=== PATIENT | male | born 1965 | race Caucasian/White ===

== ENCOUNTER → 2016-12-02 | Outpatient (CLI) | payer MEDICARE ==
--- NOTE | ~2016-12-02 | CST ---
Cardiac Perfusion Imaging Demographics Patient Name DRE Toledo JR Gender Male Patient Number [id number] Race Visit Number [id number] Ethnicity [employer] ID Room Number Accession Number [id number] Height Date of 1965 Weight Age 50 year(s) BSA Referring Physician Tono Overton MD BMI [facility] Date of study 12/02/2016 Physician Radiology Jonathan Robles M.D. Supervising MD/MLP Tono Overton MD [facility] Technologist Deangelo Valenzuela, [facility] Ordering Physician Tono Overton MD Stress Priyanka Sanchez injection mold technician Stress ECG Reading Tono Overton MD Nurse Kei Johnsony Physician Danny Bullock The procedure was explained in detail to the patient. Risks, complications and alternative treatments were reviewed. Written consent was obtained. Medications Reviewed with Patient prior to Procedure. Procedure Procedure Type: Nuclear Stress Test:Pharmacological, Lexiscan, Cardiac Study SF Procedure Start time: 12/02/2016 07:15 Indications: Chest pain, Tobacco use-prior, Hypertension and Family history of coronary artery disease. Appropriate Use Criteria: 8 Risk Factors The patient risk factors include:former tobacco use, treated hypertension and family history of premature CAD. Conclusions Summary Perfusion Images: The overall quality of the study is good. Left ventricular cavity is noted to be normal on the stress and rest studies. There is no evidence of abnormal lung activity. The right ventricle is not visualized and cannot be assessed. Stress SPECT images demonstrate homogenous tracer distribution throughout the myocardium. Rest SPECT images demonstrate homogenous tracer distribution throughout the myocardium. Gated SPECT imaging reveals normal myocardial thickening and wall motion. The left ventricular ejection fraction was calculated to be 46%. Impression 1. Normal myocardial perfusion. 2. Diminished left ventricular systolic function with an ejection fraction of 46 %. Stress Protocols Resting ECG Within normal limits. Resting HR:58 bpm Resting BP:152/92 mmHg Stress Protocol:Pharmacologic Predicted HR: 169 bpm Test duration: 06:00 min ECG Findings Normal sinus rhythm. Symptoms Nausea. Complications Procedure complication: None. Stress Interpretation Appropriate hemodynamic response to Lexiscan. No significant ST-T wave changes with Lexiscan. ECG portion is negative for ischemia by diagnostic criteria. Imaging Results Summed scores - Summed stress score: 0 - Summed rest score: 0 - Summed difference score: 0 Stress ejection Ejection fraction:46 % EDV :207 ml ESV :111 ml Stroke volume :96 ml LV mass :196 gr Imaging Protocols Rest Stress Isotope:Tc99m Myoview IV Isotope: Tc99m Myoview IV Isotope dose:10.8 mCi Isotope dose:31.2 mCi Date:12/02/2016 06:30 Date:12/02/2016 07:15 Technique: SPECT Technique: Gated Supine SPECT Supine Scan Time:30 minutes post injection Scan Time:15-30 minutes post injection Procedure Medications - Regadenoson (Lexiscan) 0.4 mg IV over 10-15 sec. I.V. 0.4 mg. Medical History Admission Data Admission date: 12/02/2016 Admission Time: 06:04 Hospital Status: Outpatient. Signatures
== END | disposition home or self-care (01) ==
LOC: CARD 06:04
DX: R07.9 Chest pain, unspecified (principal); I10 Essential (primary) hypertension; Z87.891 Personal history of nicotine dependence; Z82.49 Family history of ischemic heart disease and other diseases of the circulatory system

== ENCOUNTER → 2016-12-03 | Outpatient (CLI) | payer MEDICARE | END | disposition home or self-care (01) | LOC: RAD.S 14:56 | DX: M54.5 Low back pain (principal); M47.896 Other spondylosis, lumbar region; M43.16 Spondylolisthesis, lumbar region; M41.9 Scoliosis, unspecified ==